=== PATIENT | female | born 1995 | race Caucasian/White ===

== ENCOUNTER → 2022-12-24 16:54 | Outpatient (CLI) | payer OTHER, SELFPAY | PROVIDERS: PCP Physician Assistant Medical; Visit Provider Family Medicine | DX: R39.89 Other symptoms and signs involving the genitourinary system (principal) | CPT/HCPCS: 87086 ==

== ENCOUNTER 2022-12-25 22:01 | Emergency (ER) | payer OTHER, SELFPAY ==
[2022-12-25 22:04] VITALS: BP 124/80; PULSE 93; RESP 16; TEMP 36.7; O2SAT 99
[2022-12-25 23:02] LABS: Bacteria Urine None Seen; Culture Indicated Urine Cult Not Indicated; RBC Urine None Seen (0-5/HPF); Squamous Epithelial Cell Urine 0-1 /HPF (0-5/HPF); WBC Urine None Seen (0-5/HPF)
--- NOTE | 2022-12-25 23:50 | ED.GENADULT ---
HPI - General Adult General Chief complaint: Urogenital-Female Stated complaint: kidney infection t-1 Time Seen by Provider: 12/25/22 23:50 Source: patient Mode of arrival: Ambulatory History of Present Illness HPI narrative: 27-year-old woman with no significant medical history presents complaining of continued dysuria, frequency and increasing right flank pain. She notes that she began having urinary tract symptoms similar today's complaints approximately a week ago. She was seen via [facility] and started on Septra b.i.d. for 5 days. The 1st 2 days seem to make a difference and then she felt like she had symptoms recurring. She was seen by her primary care doctor on the with a urine culture obtained and switched to Macrobid. She comes in today complaining of flank pain. She is having no fevers, nausea, vomiting or diarrhea. No palpitations or chest pain. She notes that she currently is menstruating Related Data Previous Rx's Medication Instructions Recorded nitrofurantoin macrocrystal 100 mg 100 mg PO BEDTIME #14 caps 12/24/22 capsule Allergies Allergy/AdvReac Type Severity Reaction Status Date / Time No Known Drug Allergies Allergy Verified 12/24/22 16:42 Review of Systems Review of Systems Narrative: Pertinent positive and negative findings as per HPI Patient History Medical History (Updated 12/26/22 @ 02:13 by Kimberly Heath MD) ADHD (~2018) Hypothyroidism (~2018) Scoliosis (~2009) Social History Smoking Status: Never smoker Smoking Status: Never smoker Exam Initial Vital Signs Initial Vital Signs: Vital Signs Temperature 98.1 F 12/25/22 22:04 Pulse Rate 93 H 12/25/22 22:04 Respiratory Rate 16 12/25/22 22:04 Blood Pressure 124/80 12/25/22 22:04 Pulse Oximetry 99 12/25/22 22:04 Oxygen Delivery Method Room Air 12/25/22 22:04 General: Healthy appearing, in no acute distress. Able to give a complete and coherent history. Well-nourished well-developed HEENT: Moist mucous membranes, normal sclera with reactive pupils, Neck: No JVD, supple Respiratory: Lungs are clear to auscultation, no wheezing no rales no rhonchi. Full and symmetrical air movement Cardiac: Regular rate and rhythm no murmurs no bruits Abdomen: Soft, mild lower pubic/pelvic tenderness without rebound or guarding, good bowel tones, no reproducible flank pain Skin: Warm and dry, no rashes Neurologic: Grossly neurologically intact with no obvious asymmetries or abnormalities Extremities: No trauma, well perfused Psych: Cooperative, appropriate insight and affect Course Orders Ordered: ED Orders 12/25/22 22:20 Urine Culture Stat Urine Microscopic Stat Vital Signs Vital signs: Vital Signs - 8 hr 12/25/22 22:04 Temperature 98.1 F Pulse Rate 93 H Respiratory Rate 16 Blood Pressure 124/80 Pulse Oximetry 99 Oxygen Delivery Method Room Air Medical Decision Making Lab Data Labs: Lab Results 12/25/22 Range/Units 22:20 Urine RBC None seen (0-5/HPF) Urine WBC None seen (0-5/HPF) Ur Squamous Epith Cells 0-1 /hpf (0-5/HPF) Urine Bacteria None seen (None) Ur Culture Indicated? Cult not indicated Micro UA Comment * Point of Care Testing Test Results Negative Urine Dip Bedside Urine Glucose Negative Bedside Urine Bilirubin - Negative Bedside Urine Ketone - Negative Urine Specific [place] 1.010 Bedside Urine Occult Blood +/- Bedside Urine pH 7.5 Bedside Urine Protein - Negative Bedside Urine Urobilinogen - Negative Bedside Urine Nitrite - Negative Bedside Urine Leukocytes - Negative Esterase Point of care testing: Point of Care Testing Test Results Negative Urine Dip Bedside Urine Glucose Negative Bedside Urine Bilirubin - Negative Bedside Urine Ketone - Negative Urine Specific [place] 1.010 Bedside Urine Occult Blood +/- Bedside Urine pH 7.5 Bedside Urine Protein - Negative Bedside Urine Urobilinogen - Negative Bedside Urine Nitrite - Negative Bedside Urine Leukocytes - Negative Esterase MDM Narrative Medical decision making narrative: CC: Persistent dysuria, frequency and urgency despite antibiotics. This is an acute problem uncertain diagnosis and uncertain prognosis Complicating co-morbidities: 5 day course of Septra completed, currently on Macrobid with 2 doses completed Data collected from: patient, Differential considered: UTI, STI, PID, kidney stone, pyelonephritis, other intra-abdominal abscess Exam documented above, pertinent findings include: Nontoxic appearing. Mild pelvic tenderness to palpation. No significant flank pain. Lab Test results independently reviewed as above. Pertinent findings: CBC shows a normal white blood cell count with no evidence of anemia Chemistries are unremarkable Urine has no red cells, white cells, squamous epithelial cells nor bacteria. Discussion: 27-year-old woman with persistent urinary tract symptoms. Currently without concerns for sexually transmitted infections. Possibility of pelvic inflammatory disease remains however she is having no vaginal discharge. Urine culture was obtained on December 24 and is not yet available. This may help with definitive diagnosis and selective antibiotic treatment. With shared decision making we opted to not make any changes tonight. Will have her continue with the Macrobid b.i.d. and follow-up with her primary care doctor. We clearly reviewed signs and symptoms of sepsis, pelvic inflammatory disease, kidney stones appendicitis or alternative diagnoses. questions are answered and she is safe for discharge home Discharge Plan Departure Patient Disposition: Home Clinical Impression: Suspected UTI Instructions: DI for Urinary Tract Infection (UTI) Activity Restrictions/Additional Instructions: Thank you for coming in today With your initial symptoms of a bladder infection treated with Septra with no significant response but no culture done it is difficult to know how to continue to proceed. At this point there is no evidence of tumors or masses, kidney stones, acute pyelonephritis (kidney infection), for other intra-abdominal abscess to explain your symptoms. Your urine today has quite a few red blood cells (which may be related to your menstrual cycle) and not many white blood cells. As you currently are on nitrofurantoin it may be that this actually is working and we simply need a few more days for the symptoms to improve. The culture that was done yesterday, prior to starting the nitrofurantoin will certainly help direct treatment with we have those results. In the meantime, you can use ibuprofen to help with bladder pain. Please continue with the nitrofurantoin and follow-up with your regular doctor within the next 1-2 days to make sure the cultures from December 24 do not suggest we need a different antibiotic. If you find that you are getting worse or develop any new symptoms, please feel free to return to the emergency department for further evaluation. Prescriptions: No Action nitrofurantoin macrocrystal 100 mg capsule 100 mg PO BEDTIME Qty: 14 0RF Rx Instructions: must administer with a meal/food Referrals: Elidia Cooney PA-C [Primary Care Provider] - Stand Alone Forms: Patient Portal/API
--- NOTE | 2022-12-26 00:45 | DI.CT.S_ITS ---
PROCEDURE: CT KIDNEY URETER BLADDER (KUB) INDICATIONS: right flank pain/ kidney infection? TECHNIQUE: Axial sections were acquired from the lung bases to the pubic symphysis. Coronal and sagittal reformats were performed. For radiation dose reduction, the following was used: automated exposure control, adjustment of mA and/or kV according to patient size. COMPARISON: None. FINDINGS: Image quality: Excellent. Lung bases: There is minimal atelectasis. Heart: Heart is normal in size. URINARY: Right Kidney and Ureter: No stones or hydronephrosis. No perinephric stranding. No hydroureter. Left Kidney and Ureter: No stones or hydronephrosis. No perinephric stranding. No hydroureter. Bladder: Normal wall thickness. No stones. ABDOMEN: Liver: Noncontrast evaluation of the liver demonstrates no discrete mass. Gallbladder: Within normal limits without calcified gallstones. Biliary ducts: No biliary ductal dilatation. Pancreas: Unremarkable. Spleen: Normal in size. Adrenal Glands: No adrenal nodules. Stomach and Bowel: Stomach, small bowel loops, and colon are normal in caliber and wall thickness. The appendix is not discretely well visualized but there are no pericecal inflammatory changes to suggest acute appendicitis. Moderate fecal loading demonstrated in the colon suggestive of constipation. Peritoneum: No abnormal intraperitoneal fluid. No free air. Ventral Wall: No hernia. Abdominal Nodes: No retroperitoneal or mesenteric adenopathy by size criteria. Vessels: Aorta and inferior vena cava are normal in size. PELVIS: Pelvic Organs: An IUD appears in appropriate position within the uterus.. Pelvic Nodes: No enlarged lymph nodes. Miscellaneous: No inguinal hernias identified. Bones: Visualized osseous structures demonstrate no suspicious focal lesions. IMPRESSION: 1. No nephrolithiasis or obstructive uropathy. 2. No perinephric stranding to definitely suggest pyelonephritis but evaluation is limited in the absence of intravenous contrast. 3. No pericecal inflammatory changes to suggest appendicitis. Dictated by: Negro Carolina M.D. on 12/26/2022 at 1:18 Approved by: Negro Carolina M.D. on 12/26/2022 at 1:23
[2022-12-26 01:23] LABS: Alanine Aminotransferase 16 IU/L (<35); Albumin 4.7 g/dL (3.5-5.0); Albumin Globulin Ratio 1.4 (1.0-2.8); Alkaline Phosphatase 46 U/L (38-126); Aspartate Aminotransferase 23 IU/L (14-36); BUN Creatinine Ratio 11.3 (6-22); Bilirubin Total 0.5 mg/dL (0.2-1.3); Blood Urea Nitrogen 8 mg/dL (7-17); Calcium 9.6 mg/dL (8.4-10.2); Carbon Dioxide 28 mmol/L (22-32); Chloride 103 mmol/L (98-107); Estimated Glomerular Filt Rate > 60 mL/min (>60); Globulin 3.3 g/dL (1.7-4.1); Glucose 101 mg/dL (70-100); HEMOLYSIS < 15 (0-50); Potassium 4.2 mmol/L (3.4-5.1); Sodium 139 mmol/L (137-145)
[2022-12-26 01:43] LABS: Add Manual Diff / Slide Review NO; Basophils Absolute Auto 0 /uL (0-100); Basophils Percent Auto 0.5 % (0-2); Eosinophils Absolute Auto 100 /uL (0-450); Eosinophils Percent Auto 0.6 % (2-4); Hematocrit 40.5 % (36-46); Hemoglobin 13.6 g/dL (12.0-16.0); Lymphocytes Absolute Auto 1600 /uL (1100-4500); Lymphocytes Percent Auto 19.7 % (25-40); Mean Corpuscular HGB Conc 33.5 % (30-36); Mean Corpuscular Hemoglobin 27.9 PG (26-34); Mean Corpuscular Volume 83.3 fL (80-100); Monocytes Absolute Auto 800 /uL (0-900); Monocytes Percent Auto 9.6 % (3-14); Neutrophils Absolute Auto 5800 /uL (1500-7000); Neutrophils Percent Auto 69.6 % (50-75); Platelet Count 201 X10^3/uL (150-400); Red Blood Cell Count 4.86 X10^6/uL (4.0-5.2); Red Cell Distribution Width 13.6 % (11.6-14.8); White Blood Cell Count 8.4 X10^3/uL (4.5-11.0)
[2022-12-26 02:10] VITALS: PULSE 77; O2SAT 99
[2022-12-26 02:11] VITALS: BP 104/63; PULSE 77; O2SAT 98
[2022-12-26] MEDS: KETOROLAC 30 MG/ML VIAL 15 MG IV (02:14)
[2022-12-26 02:22] VITALS: BP 104/63; PULSE 76; RESP 16; TEMP 36.6; O2SAT 98
== END 2022-12-26 02:20 | disposition home or self-care (01) ==
PROVIDERS: Emergency Provider Emergency Medicine; PCP Physician Assistant Medical
DX: R30.0 Dysuria (principal); R35.0 Frequency of micturition; R10.9 Unspecified abdominal pain
CPT/HCPCS: 36415; 74176; 80053; 81003; 81015; 81025; 85025; 87086; 96374; 99284; J1885